=== PATIENT | male | born 1990 | race Caucasian/White ===

== ENCOUNTER 2018-10-25 15:15 | Emergency (ER) | payer MEDICAID ==
[2018-10-25 16:21] LABS: ACETAMINOPHEN < 2 ug/mL (10-30)
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
[2018-10-25] MEDS ORDERED: LORazepam 1 MG Tab PO ONE (17:02)
[2018-10-25 20:20] VITALS: BP 148/78
== END 2018-10-25 18:36 ==
LOC: FB.ED 15:15
DX: F33.2 Major depressive disorder, recurrent severe without psychotic features (principal); K21.9 Gastro-esophageal reflux disease without esophagitis; F17.210 Nicotine dependence, cigarettes, uncomplicated; Z88.8 Allergy status to other drugs, medicaments and biological substances; Z79.899 Other long term (current) drug therapy
CPT/HCPCS: 36415; 80048; 80305; 81001; 84443; 85025; 99285; A9270; G0480

== ENCOUNTER 2018-11-04 03:48 | Emergency (ER) | payer MEDICAID ==
--- NOTE | 2018-11-13 17:27 | ER ---
DATE SEEN: 11/04/2018 HISTORY OF PRESENT ILLNESS: Sanjiv is anxious. He is missing the presence and stabilizing, and also comforting association of his roommate. His roommate is in [place]. The patient stopped taking his medicines, his lithium and sleeping medicines, he threw them away, so he has been off medication for a week. He was just discharged from [facility] on Tuesday, October 30, 2018. He stated "I may get along fine without my medicine, except I am not sleeping very well." He came to get sleeping medicines and his psych medicines refilled. Normally, he takes lithium and Risperdal plus HIV medicines. It is indeterminate if he is taking his HIV medicine. Plus, he takes pantoprazole for GERD. PAST MEDICAL HISTORY: Personality disorder, previous episodes of suicidal behavior, depression, noncompliance of medication, quite weary, history of alcohol intoxication, suggestion of HIV (I did not ask him) on the basis of the medications he is taking, and GERD. PHYSICAL EXAMINATION: VITAL SIGNS: Blood pressure 146/88, repeat blood pressure 138/80; heart rate 87; respirations 18; oxygen saturation 97%; and temperature 36.8 degrees centigrade. GENERAL: The patient was on examination alert, weary, and would like to take off clothes. NECK: No thyromegaly or masses in the neck. LUNGS: Clear. HEART: S1 and S2. No murmur. No tachycardia. ABDOMEN: Soft. No guarding. No abdominal discomfort. EXTREMITIES: Without abnormality. NEUROLOGIC: Deep tendon reflexes, upper and lower extremities, normoactive. Cranial nerves 2 through 12 are intact. Oriented x3. Gait is appropriate, no ataxia. ASSESSMENT: The patient wants medication to help treat his personality disorder and depression, and he is noncompliant, suggest HIV on the basis of kind of medicines (the patient not asked), and gastroesophageal reflux disease. PLAN: I discussed with the patient that I did not feel comfortable refilling his anxiety medicines and felt he should be following up with his doctor. The patient is not homicidal, not experiencing hallucinations, he is anxious, does not feel helpless and hopeless, does not feel guilty, and concentration is "okay," energy is good, but anxiety has increased, and he is having difficulty sleep. Because of his significant psychiatric history and background, I chose not to provide any sedatives and not to provide any lithium, but advised him to follow up with his doctor tomorrow and have those medications prescribed for him. At this point, he stated "if you are not going to give me medicines to help sleep and my psychiatry medicines, I am leaving," and he left AMA without signing. /[id number] CARINA/ERNESTINA
== END 2018-11-04 04:29 | disposition left against medical advice (07) ==
LOC: FB.ED 03:48
DX: Z76.0 Encounter for issue of repeat prescription (principal); F41.9 Anxiety disorder, unspecified; Z53.21 Procedure and treatment not carried out due to patient leaving prior to being seen by health care provider
CPT/HCPCS: 80305-QW; 99283

== ENCOUNTER 2018-11-04 08:10 | Emergency (ER) | payer MEDICAID ==
[2018-11-04 09:35] LABS: ACETAMINOPHEN < 2 ug/mL (10-30)
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
[2018-11-04] MEDS ORDERED: Ondansetron 4 MG Tab.DIS PO ONE (11:49)
[2018-11-04 12:13] VITALS: BP 138/80
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
== END 2018-11-04 12:20 ==
LOC: FB.ED 08:10
DX: T20.12XA Burn of first degree of lip(s), initial encounter (principal); F60.9 Personality disorder, unspecified; F10.229 Alcohol dependence with intoxication, unspecified; Z90.49 Acquired absence of other specified parts of digestive tract; Z88.8 Allergy status to other drugs, medicaments and biological substances; Z91.19 Patient's noncompliance with other medical treatment and regimen; X08.8XXA Exposure to other specified smoke, fire and flames, initial encounter; Y90.6 Blood alcohol level of 120-199 mg/100 ml
CPT/HCPCS: 36415; 71046; 80053; 80178; 80305; 81001; 82375; 84443; 84484; 85025; 93005; 99284; A9270; G0480 ×3; 99283

== ENCOUNTER 2018-11-25 09:10 | Emergency (ER) | payer MEDICAID, OTHER ==
[2018-11-25] MEDS ORDERED: Lidocaine 2% 20 ML MDV INFILT ONE (09:11)
[2018-11-25] MEDS ORDERED: Bacitracin Oint 1 GM U/D Packet TOP ONE (09:37)
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
[2018-11-25] MEDS ORDERED: Cephalexin 500 MG Cap PO ONE ×2 (09:42→10:24)
[2018-11-25 09:55] LABS: ACETAMINOPHEN < 2 ug/mL (<2)
[2018-11-25] MEDS: Acetaminophen 325 MG Tab PO ONE ×2 (10:17→10:23)
[2018-11-25 11:15] VITALS: BP 143/82
== END 2018-11-25 10:42 ==
LOC: FB.ED 09:10
DX: S51.812A Laceration without foreign body of left forearm, initial encounter (principal); K21.9 Gastro-esophageal reflux disease without esophagitis; X78.8XXA Intentional self-harm by other sharp object, initial encounter; Z88.8 Allergy status to other drugs, medicaments and biological substances; Z87.891 Personal history of nicotine dependence; Z79.899 Other long term (current) drug therapy
CPT/HCPCS: 12001; 36415; 80053; 80178; 80305; 84443; 85025; 99283; A9270; G0480; J2001; 12011